=== PATIENT | female | born 1960 ===

== ENCOUNTER 2025-03-16 07:00 | Day surgery (SDC) | payer OTHER ==
[2025-03-10 14:19] VITALS: BP 114/78
[~2025-03-16] VITALS: Ht 165.1 cm; Wt 72.6 kg
[~2025-03-16 07:00] MED LIST: ALBUTEROL SULFAT2 MG
[2025-03-16] MEDS ORDERED: CEFAZOLIN SODIUM 1,000 MG VIAL ONE (08:09)
== END 2025-03-16 10:40 | disposition home or self-care (01) ==
LOC: CIR.AMB 07:00
PROVIDERS: ATTEND Surgery Surgery of the Hand
DX: M71.342 Other bursal cyst, left hand (principal); D21.12 Benign neoplasm of connective and other soft tissue of left upper limb, including shoulder